=== PATIENT | female | born 1970 | race Caucasian/White ===

== ENCOUNTER → 2018-01-12 16:25 | Outpatient (CLI) | payer SELFPAY ==
--- NOTE | 2018-01-12 16:31 | US_ITS ---
STUDY: ULTRASOUND OF THE FEMALE PELVIS - COMPLETE REASON FOR EXAM: Female, 47 years old. Right lower quadrant pain. TECHNIQUE: Transabdominal TECHNICAL QUALITY: Adequate. COMPARISON: None. FINDINGS: The uterus is anteverted and is in a midline position. The uterus measures 11.5 x 6.9 x 4.4 cm. Normal uterine cervix. The endometrium measures 12 mm in thickness, and is hyperechoic. There is no demonstrated endometrial mass. There is no demonstrated myometrial mass. There is a nabothian cyst is noted in the cervix. The right ovary is visualized. The right ovary measures 4.1 x 2.8 x 2.3 cm. There is a 2.4 x 1.7 cm simple cyst in the right ovary. There is no visualized right adnexal mass or complex lesion. There is normal arterial and normal venous vascularity. The left ovary is visualized. The left ovary measures 2.7 x 1.6 x 2.1 cm cm. There is a 1.8 x 1.6 cm single cyst in the left ovary. There is no visualized left adnexal mass or complex lesion. There is normal arterial and normal venous vascularity. There is no fluid in the cul-de-sac. US/Pelvic (Non ) IMPRESSION: Thickened endometrium, likely due to cyclic change. Otherwise, normal uterus. Bilateral simple ovarian cysts. Normal Doppler flow demonstrated to the ovaries. Electronically Signed: Adilson Villarreal, at 21:05 EDT Tel , Service support ,
== END ==
PROVIDERS: Visit Provider Family Medicine
DX: R10.31 Right lower quadrant pain (principal)
CPT/HCPCS: 76856

== ENCOUNTER → 2024-09-04 | Outpatient (CLI) | payer SELFPAY ==
--- NOTE | 2024-09-04 09:04 | VDLE_ITS ---
Reason For Study: RLE Pain RIGHT LEFT GSV is normal. CFV is compressible, spontaneous, phasic, CFV is compressible, spontaneous, phasic, competent, and demonstrates normal competent and demonstrates normal augmentation. augmentation. FV is compressible, spontaneous, phasic, competent and demonstrates normal augmentation. POP V is compressible, spontaneous, phasic, competent and demonstrates normal augmentation. T/P Trunk is compressible. PTV is compressible. RT PerV is compressible. ASV and multiple varicose veins noted throughout Rt Anterior Thigh appear compressible. Procedure This is a venous duplex using B-mode, color flow and spectral Doppler. Exam performed in department. The exam was diagnostic. A preliminary report was called and/or faxed to Dr Ethan Canales office in [place]. VL/Venous Duplex US, Unilateral Interpretation Summary Deep veins of the right lower extremity are patent and compressible segmentally . There is no evidence of right lower extremity deep vein thrombosis. Valvular competence romain ears intact within the proximal deep venous system on the right . The right great saphenous vein a ppears patent and compressible segmentally. An accessory saphenous vein and multiple varicosities in the right anterior thigh are compressible. The left common femoral vein is patent and com pressible . Ordering Physician: Ethan Canales Referring Physician: Rhoda Guo Performed By: Pan Jeff, RVT
== END | disposition home or self-care (01) ==
LOC: CVS 09:03
PROVIDERS: PCP Obstetrics & Gynecology Gynecology; Referring Provider Family Medicine; Visit Provider Family Medicine
DX: M79.604 Pain in right leg (principal)
CPT/HCPCS: 93971